=== PATIENT | male | born 1945 | race Asian ===

== ENCOUNTER 2017-01-20 18:53 | Inpatient (IN) | payer MEDICARE, OTHER ==
[~2017-01-20] VITALS: Ht 165.1 cm; Wt 53.2 kg
[2017-01-20] MEDS ORDERED: DSS100 PO (19:17)
[2017-01-20] MEDS ORDERED: MULT-1272 PO (19:17)
[2017-01-20] MEDS ORDERED: COLL30OI TP (19:17)
[2017-01-20] MEDS ORDERED: METO25XL PO (19:17)
[2017-01-20] MEDS ORDERED: MOM30 PO (19:17)
[2017-01-20] MEDS ORDERED: FE PR (19:17)
[2017-01-20] MEDS ORDERED: AMLO-511 PO (19:17)
[2017-01-20] MEDS ORDERED: CLON.2 PO (19:17)
[2017-01-20] MEDS ORDERED: ENOX40DI9 SQ (19:17)
[2017-01-20] MEDS ORDERED: ACET-784 PO (19:17)
[2017-01-20] MEDS ORDERED: LACT1CAP62 PO (19:17)
[2017-01-20] MEDS ORDERED: DIPH50 PO (19:17)
[2017-01-20] MEDS ORDERED: INSNOV SQ (19:17)
[2017-01-20] MEDS ORDERED: THIA100 PO (19:17)
[2017-01-20] MEDS ORDERED: OXYC5 PO (19:17)
[2017-01-20] MEDS ORDERED: FOLI1 PO (19:17)
[2017-01-20] MEDS ORDERED: CLON1PAT13 TD (19:17)
[2017-01-20] MEDS ORDERED: IPRA3AMP4 IH (19:17)
[2017-01-20] MEDS ORDERED: GUAI5SYR PO (19:17)
[2017-01-20] MEDS ORDERED: FAMO20 PO (19:17)
[2017-01-20] MEDS ORDERED: AUD NEB (19:17)
[2017-01-20] MEDS ORDERED: BARIUM SULFATE 0.1% SUSPENSION 450 ML BOTTLE PO ONE (20:00)
[2017-01-20] MEDS ORDERED: SODIUM CHLORIDE 0.9% 100 ML ONE (20:08)
[2017-01-20] MEDS ORDERED: IOVERSOL 350 MG/ML 100 ML VIAL ONE (20:08)
[2017-01-20 20:36] LABS: BASOPHILS % (AUTO) 0.2 % (0.0-2.0); EOSINOPHILS % (AUTO) 1.2 % (1.0-6.0); HEMATOCRIT 38.1 % (41-53); HEMOGLOBIN 12.8 g/dL (13.5-17.5); LYMPHOCYTES # (AUTO) 1.6 K/uL (1.0-4.8); LYMPHOCYTES % (AUTO) 7.4 % (22.0-44.0); MEAN CORPUSCULAR HEMOGLOBIN 28.9 pg (26.0-34.0); MEAN CORPUSCULAR HGB CONC 33.5 G/dL (31.0-37.0); MEAN CORPUSCULAR VOLUME 86 fL (80-100); MONOCYTES # (AUTO) 1.4 K/uL (0.1-1.0); MONOCYTES % (AUTO) 6.4 % (2.0-9.0); NEUTROPHILS # (AUTO) 18.2 K/uL (1.8-7.7); NEUTROPHILS % (AUTO) 84.8 % (40.0-70.0); PLATELET COUNT (AUTO) 320 K/uL (150-450); RED BLOOD CELL COUNT(AUTO) 4.42 MIL/uL (4.50-5.90); RED CELL DISTRIBUTION WIDTH 15.8 % (11.5-14.5); WHITE BLOOD COUNT (AUTO) 21.5 K/uL (4.5-11.0)
[2017-01-20 20:44] LABS: ANION GAP 9 mmol/L (8-16); CALCIUM, TOTAL 9.3 mg/dL (8.8-10.5); CARBON DIOXIDE 29 mmol/L (22-29); CHLORIDE 98 mmol/L (98-107); CREATININE 0.73 mg/dL (0.60-1.30); GLOMERULAR FILTR. RATE CALC > 60 mL/min (>60); POTASSIUM 3.4 mmol/L (3.5-5.1); SODIUM SERUM 136 mmol/L (136-145); UREA NITROGEN, BLOOD 12 mg/dL (7-18)
[2017-01-20 20:50] LABS: ALANINE AMINOTRANSFERASE 36 U/L (12-78); ALBUMIN 3.3 g/dL (3.4-5.0); ASPARTATE AMINOTRANSFERASE 34 U/L (15-37); BILIRUBIN,TOTAL 0.3 mg/dL (0.1-1.0); TOTAL PROTEIN, SERUM 8.7 g/dL (6.4-8.2)
[2017-01-20 21:02] LABS: APPEARANCE,URINE CLEAR (CLEAR); GLUCOSE, URINE (UA) NEGATIVE (NEGATIVE); KETONES,URINE NEGATIVE (NEGATIVE); LEUKOCYTE ESTERASE ,URINE SMALL (NEGATIVE); OCCULT BLOOD,URINE NEGATIVE (NEGATIVE); PROTEIN,URINE NEGATIVE (NEGATIVE)
[2017-01-20 21:13] LABS: RBC,URINE 0-2 /HPF (0-2); SQUAMOUS EPITHELIAL CELL,UR Rare /LPF (None Seen)
[2017-01-20] MEDS ORDERED: MAGNESIUM HYDROXIDE SUSPENSION 30 ML UDCUP PO PRN (22:30)
[2017-01-20] MEDS ORDERED: ALBUTEROL SULFATE 2.5 MG/0.5 ML NEB SOLUTION NEB PRN (22:30)
[2017-01-20] MEDS ORDERED: SODIUM CHLORIDE 0.9% 1,000 ML IV ONE (22:30)
[2017-01-20] MEDS ORDERED: CloNIDine HCL 0.1 MG TABLET PO PRN (22:30)
[2017-01-20] MEDS ORDERED: POTASSIUM CHL 10 MEQ/WATER 50 ML IV PRN (22:30)
[2017-01-20] MEDS ORDERED: POTASSIUM CHLORIDE 20 MEQ ER TABLET PO PRN (22:30)
[2017-01-20] MEDS ORDERED: ACETAMINOPHEN 325 MG TABLET PO PRN (22:30)
[2017-01-20] MEDS ORDERED: DEXTROSE 50%-WATER 25 GM/50 ML SYRINGE IVP PRN (22:30)
[2017-01-20 23:02] LABS: GLUCOSE,POINT OF CARE 97 MG/DL (70-110)
[2017-01-21] VITALS (7 sets, daily range): BP systolic 113–158; BP diastolic 68–88
[2017-01-21] MEDS ORDERED: PNEUMOCOCCAL VACCINE POLYVALENT 0.5 ML VIAL [PPSV23] IM ONE (00:30)
[2017-01-21] MEDS: PIPERACILLIN/TAZO 3.375 GM/D5W 50 ML IV SCH ×5 (00:32→23:30)
[2017-01-21] MEDS: HEPARIN SODIUM,PORCINE 5,000 UNITS/ML VIAL SQ SCH ×4 (08:00→23:30)
[2017-01-21] MEDS: ASPIRIN 81 MG CHEWABLE TABLET PO SCH (08:43)
[2017-01-21] MEDS: DOCUSATE SODIUM 100 MG CAPSULE PO SCH ×2 (08:43→21:04)
[2017-01-21 11:48] LABS: GLUCOSE,POINT OF CARE 105 MG/DL (70-110)
[2017-01-21] MEDS: INSULIN ASPART 100 UNITS/ML SQ PRN ×2 (12:04→17:14)
[2017-01-21] MEDS ORDERED: SODIUM CHLORIDE 0.9% 100 ML ONE (13:18)
[2017-01-21 16:02] LABS: GLUCOSE,POINT OF CARE 100 MG/DL (70-110)
[2017-01-22 04:47] VITALS: BP 132/72
[2017-01-22] MEDS: PIPERACILLIN/TAZO 3.375 GM/D5W 50 ML IV SCH (05:41)
[2017-01-22 06:22] LABS: BASOPHILS # (AUTO) 0.02 K/uL (0.00-0.20); BASOPHILS % (AUTO) 0.1 % (0.0-2.0); EOSINOPHILS # (AUTO) 0.38 K/uL (0.00-0.70); EOSINOPHILS % (AUTO) 2.04 % (1.0-6.0); HEMATOCRIT 37.7 % (41-53); HEMOGLOBIN 12.8 g/dL (13.5-17.5); LYMPHOCYTES # (AUTO) 1.3 K/uL (1.0-4.8); LYMPHOCYTES % (AUTO) 6.8 % (22.0-44.0); MEAN CORPUSCULAR HEMOGLOBIN 28.6 pg (26.0-34.0); MEAN CORPUSCULAR HGB CONC 33.8 G/dL (31.0-37.0); MEAN CORPUSCULAR VOLUME 85 fL (80-100); MONOCYTES # (AUTO) 1.4 K/uL (0.1-1.0); MONOCYTES % (AUTO) 7.5 % (2.0-9.0); NEUTROPHILS # (AUTO) 15.5 K/uL (1.8-7.7); NEUTROPHILS % (AUTO) 83.6 % (40.0-70.0); PLATELET COUNT (AUTO) 311 K/uL (150-450); RED BLOOD CELL COUNT(AUTO) 4.46 MIL/uL (4.50-5.90); RED CELL DISTRIBUTION WIDTH 15.7 % (11.5-14.5); WHITE BLOOD COUNT (AUTO) 18.6 K/uL (4.5-11.0)
[2017-01-22 06:29] LABS: ANION GAP 10 mmol/L (8-16); CALCIUM, TOTAL 8.9 mg/dL (8.8-10.5); CARBON DIOXIDE 27 mmol/L (22-29); CHLORIDE 100 mmol/L (98-107); CREATININE 0.71 mg/dL (0.60-1.30); GLOMERULAR FILTR. RATE CALC > 60 mL/min (>60); POTASSIUM 3.3 mmol/L (3.5-5.1); SODIUM SERUM 137 mmol/L (136-145); UREA NITROGEN, BLOOD 7 mg/dL (7-18)
[2017-01-22 07:36] VITALS: BP 135/53
[2017-01-22] MEDS: HEPARIN SODIUM,PORCINE 5,000 UNITS/ML VIAL SQ SCH ×2 (08:00→15:05)
[2017-01-22] MEDS: ASPIRIN 81 MG CHEWABLE TABLET PO SCH (08:06)
[2017-01-22] MEDS: DOCUSATE SODIUM 100 MG CAPSULE PO SCH ×2 (08:06→21:44)
[2017-01-22] MEDS ORDERED: TIGECYCLINE 50 MG in SODIUM CHLORIDE 0.9% 50 ML IV SCH (10:00)
[2017-01-22] MEDS ORDERED: TIGECYCLINE 100 MG in SODIUM CHLORIDE 0.9% 100 ML IV ONE (10:30)
[2017-01-22 11:36] VITALS: BP 137/81
[2017-01-22 16:55] VITALS: BP 136/81
[2017-01-22] MEDS ORDERED: ONDANSETRON HCL 4 MG/2 ML VIAL ONE (17:13)
[2017-01-22] MEDS ORDERED: ONDANSETRON HCL 4 MG/2 ML VIAL IVP PRN (17:15)
[2017-01-22] MEDS ORDERED: DIPH25 PO (17:15)
[2017-01-22 20:20] VITALS: BP 159/98
[2017-01-22] MEDS: ONDANSETRON HCL 4 MG/2 ML VIAL IVP PRN (21:44)
[2017-01-22] MEDS: TIGECYCLINE 50 MG in SODIUM CHLORIDE 0.9% 50 ML IV SCH (21:46)
[2017-01-22] MEDS: LACTOBACILLUS ACIDOPHILUS/BULGARICUS TABLET PO SCH (22:08)
[2017-01-23 00:32] VITALS: BP 144/91
[2017-01-23] MEDS: ONDANSETRON HCL 4 MG/2 ML VIAL IVP PRN ×2 (03:12→18:14)
[2017-01-23 05:11] VITALS: BP 154/94
[2017-01-23 06:56] LABS: ANION GAP 8 mmol/L (8-16); CALCIUM, TOTAL 9.2 mg/dL (8.8-10.5); CARBON DIOXIDE 27 mmol/L (22-29); CHLORIDE 100 mmol/L (98-107); CREATININE 0.67 mg/dL (0.60-1.30); GLOMERULAR FILTR. RATE CALC > 60 mL/min (>60); SODIUM SERUM 135 mmol/L (136-145); UREA NITROGEN, BLOOD 14 mg/dL (7-18)
[2017-01-23 07:14] VITALS: BP 141/93
[2017-01-23] MEDS: HEPARIN SODIUM,PORCINE 5,000 UNITS/ML VIAL SQ SCH ×3 (08:00→15:47)
[2017-01-23] MEDS: LACTOBACILLUS ACIDOPHILUS/BULGARICUS TABLET PO SCH ×2 (08:12→20:51)
[2017-01-23] MEDS: ASPIRIN 81 MG CHEWABLE TABLET PO SCH (08:13)
[2017-01-23] MEDS: DOCUSATE SODIUM 100 MG CAPSULE PO SCH ×2 (08:13→20:51)
[2017-01-23] MEDS: TIGECYCLINE 50 MG in SODIUM CHLORIDE 0.9% 50 ML IV SCH (10:51)
[2017-01-23] MEDS ORDERED: SODIUM CHLORIDE 0.9% 100 ML ONE (11:01)
[2017-01-23 11:27] VITALS: BP 147/93
[2017-01-23 15:17] VITALS: BP 138/95
[2017-01-23 18:17] LABS: GLUCOSE,POINT OF CARE 83 MG/DL (70-110)
[2017-01-23 18:18] LABS: GLUCOSE,POINT OF CARE 102 MG/DL (70-110)
[2017-01-23 18:18] LABS: GLUCOSE,POINT OF CARE 82 MG/DL (70-110)
[2017-01-23 18:18] LABS: GLUCOSE,POINT OF CARE 108 MG/DL (70-110)
[2017-01-23 19:08] LABS: GLUCOSE,POINT OF CARE 90 MG/DL (70-110)
[2017-01-23 19:08] LABS: GLUCOSE,POINT OF CARE 76 MG/DL (70-110)
[2017-01-23 19:08] LABS: GLUCOSE,POINT OF CARE 85 MG/DL (70-110)
[2017-01-23 19:08] LABS: GLUCOSE,POINT OF CARE 106 MG/DL (70-110)
[2017-01-23 19:08] LABS: GLUCOSE,POINT OF CARE 104 MG/DL (70-110)
[2017-01-23 19:31] VITALS: BP 131/87
[2017-01-24 00:56] VITALS: BP 146/92
[2017-01-24] MEDS: TIGECYCLINE 50 MG in SODIUM CHLORIDE 0.9% 50 ML IV SCH ×2 (01:51→10:11)
[2017-01-24] MEDS: HEPARIN SODIUM,PORCINE 5,000 UNITS/ML VIAL SQ SCH ×3 (01:51→16:00)
[2017-01-24 04:22] VITALS: BP 156/83
[2017-01-24 06:49] LABS: ANION GAP 8 mmol/L (8-16); CALCIUM, TOTAL 9.2 mg/dL (8.8-10.5); CARBON DIOXIDE 29 mmol/L (22-29); CHLORIDE 101 mmol/L (98-107); CREATININE 0.68 mg/dL (0.60-1.30); GLOMERULAR FILTR. RATE CALC > 60 mL/min (>60); POTASSIUM 4.1 mmol/L (3.5-5.1); SODIUM SERUM 138 mmol/L (136-145); UREA NITROGEN, BLOOD 17 mg/dL (7-18)
[2017-01-24 06:50] LABS: BASOPHILS % (AUTO) 0.6 % (0.0-2.0); EOSINOPHILS % (AUTO) 1.7 % (1.0-6.0); HEMATOCRIT 42.2 % (41-53); LYMPHOCYTES # (AUTO) 1.8 K/uL (1.0-4.8); LYMPHOCYTES % (AUTO) 10.4 % (22.0-44.0); MEAN CORPUSCULAR HEMOGLOBIN 28.6 pg (26.0-34.0); MEAN CORPUSCULAR HGB CONC 33.1 G/dL (31.0-37.0); MEAN CORPUSCULAR VOLUME 86 fL (80-100); MONOCYTES % (AUTO) 6.1 % (2.0-9.0); NEUTROPHILS # (AUTO) 13.6 K/uL (1.8-7.7); NEUTROPHILS % (AUTO) 81.2 % (40.0-70.0); PLATELET COUNT (AUTO) 400 K/uL (150-450); RED BLOOD CELL COUNT(AUTO) 4.88 MIL/uL (4.50-5.90); RED CELL DISTRIBUTION WIDTH 15.4 % (11.5-14.5); WHITE BLOOD COUNT (AUTO) 16.8 K/uL (4.5-11.0)
[2017-01-24 07:18] VITALS: BP 124/80
[2017-01-24] MEDS: LACTOBACILLUS ACIDOPHILUS/BULGARICUS TABLET PO SCH (08:20)
[2017-01-24] MEDS: DOCUSATE SODIUM 100 MG CAPSULE PO SCH (08:20)
[2017-01-24] MEDS: ASPIRIN 81 MG CHEWABLE TABLET PO SCH (08:20)
[2017-01-24 11:10] VITALS: BP 148/92
[2017-01-24] MEDS: INSULIN ASPART 100 UNITS/ML SQ PRN (12:13)
[2017-01-24 15:46] VITALS: BP 131/81
[2017-01-24 19:58] LABS: GLUCOSE,POINT OF CARE 88 MG/DL (70-110)
[2017-01-24 20:02] LABS: GLUCOSE,POINT OF CARE 91 MG/DL (70-110)
[2017-01-24 20:08] LABS: GLUCOSE,POINT OF CARE 89 MG/DL (70-110)
== END 2017-01-24 18:00 | DRG 871 ==
LOC: EMS 18:55 → 5N 22:41
PROVIDERS: ADMIT Internal Medicine; ATTEND Internal Medicine
DX: A41.01 Sepsis due to Methicillin susceptible Staphylococcus aureus (principal); K65.1 Peritoneal abscess; E44.0 Moderate protein-calorie malnutrition; K56.7 Ileus, unspecified; N39.0 Urinary tract infection, site not specified; Z68.1 Body mass index [BMI] 19.9 or less, adult; E11.9 Type 2 diabetes mellitus without complications; I10 Essential (primary) hypertension; K21.9 Gastro-esophageal reflux disease without esophagitis; K80.20 Calculus of gallbladder without cholecystitis without obstruction; Z16.24 Resistance to multiple antibiotics; Z79.4 Long term (current) use of insulin; B96.1 Klebsiella pneumoniae [K. pneumoniae] as the cause of diseases classified elsewhere; Z88.5 Allergy status to narcotic agent; Z28.21 Immunization not carried out because of patient refusal
CPT/HCPCS: 74177; 82962; 83605; 84132; 87040; 87070; 87081; 87086; 87205; 96360; 96361; 97110; 97116; 97162; 97530; 99291; J1644; J2405; J2543; J3243; J7030; J7050

== ENCOUNTER → 2017-04-25 | Outpatient (CLI) | payer MEDICARE, OTHER ==
[~2017-04-25] VITALS: Ht 160 cm; Wt 62.0 kg
[~2017-04-25] MED LIST: ACET-784 PO; AMLO-511 PO; AUD NEB; CLON.2 PO; CLON1PAT13 TD; COLL30OI TP; DIPH25 PO; DSS100 PO; ENOX40DI9 SQ; FAMO20 PO; FE PR; FOLI1 PO; GUAI5SYR PO; INSNOV SQ; IPRA3AMP4 IH; LACT1CAP62 PO; LORA10TA7 PO; MENT10LO MM; METO25XL PO; MOM30 PO; MULT-1272 PO; OXYC5 PO; THIA100 PO
[2017-04-25 13:47] VITALS: BP 143/82
== END | disposition home or self-care (01) ==
LOC: SRCNTR 13:39
PROVIDERS: ATTEND Internal Medicine Critical Care Medicine
DX: G47.33 Obstructive sleep apnea (adult) (pediatric) (principal); C61 Malignant neoplasm of prostate; E11.9 Type 2 diabetes mellitus without complications; I10 Essential (primary) hypertension; J44.1 Chronic obstructive pulmonary disease with (acute) exacerbation; J93.83 Other pneumothorax; Z79.4 Long term (current) use of insulin; Z82.3 Family history of stroke; Z87.891 Personal history of nicotine dependence; Z88.5 Allergy status to narcotic agent; Z90.79 Acquired absence of other genital organ(s)
CPT/HCPCS: G0463

== ENCOUNTER → 2017-04-26 | Outpatient (CLI) | payer MEDICARE, OTHER ==
[~2017-04-26] MED LIST changes: -ACET-784 PO; -AUD NEB; -CLON.2 PO; -CLON1PAT13 TD; -COLL30OI TP; -DIPH25 PO; -DSS100 PO; -ENOX40DI9 SQ; -FAMO20 PO; -FE PR; -FOLI1 PO; -GUAI5SYR PO; -INSNOV SQ; -IPRA3AMP4 IH; -LACT1CAP62 PO; -METO25XL PO; -MOM30 PO; -MULT-1272 PO; -OXYC5 PO; -THIA100 PO
== END | disposition home or self-care (01) ==
LOC: RADPV 11:57
PROVIDERS: ATTEND Internal Medicine Critical Care Medicine
DX: M19.032 Primary osteoarthritis, left wrist (principal); G89.4 Chronic pain syndrome

== ENCOUNTER → 2017-05-15 | Outpatient (CLI) | payer MEDICARE, OTHER | END | disposition home or self-care (01) | LOC: MSR 11:28 | PROVIDERS: ATTEND Internal Medicine Critical Care Medicine | DX: I70.0 Atherosclerosis of aorta (principal); K80.20 Calculus of gallbladder without cholecystitis without obstruction; M19.032 Primary osteoarthritis, left wrist; J44.1 Chronic obstructive pulmonary disease with (acute) exacerbation; J84.112 Idiopathic pulmonary fibrosis | CPT/HCPCS: 71250; 94010; 94726; 94727; 94729 ==

== ENCOUNTER → 2017-05-24 | Outpatient (CLI) | payer MEDICARE, OTHER ==
[~2017-05-24] VITALS: Ht 160 cm; Wt 63.0 kg
[2017-05-24 13:22] VITALS: BP 118/79
== END | disposition home or self-care (01) ==
LOC: SRCNTR 13:09
PROVIDERS: ATTEND Internal Medicine Critical Care Medicine
DX: J44.1 Chronic obstructive pulmonary disease with (acute) exacerbation (principal); J93.83 Other pneumothorax; G47.33 Obstructive sleep apnea (adult) (pediatric); J84.9 Interstitial pulmonary disease, unspecified; I10 Essential (primary) hypertension; Z85.46 Personal history of malignant neoplasm of prostate; Z90.79 Acquired absence of other genital organ(s)
CPT/HCPCS: G0463

== ENCOUNTER → 2017-07-02 | Outpatient (CLI) | payer MEDICARE, OTHER ==
[~2017-07-02] VITALS: Ht 160 cm; Wt 63.6 kg
[~2017-07-02] MED LIST changes: -LORA10TA7 PO; +MELA3TAB66 PO; +MELO-107 PO; -MENT10LO MM; +NINT150C PO
[2017-07-02 11:38] VITALS: BP 128/83
== END | disposition home or self-care (01) ==
LOC: SRCNTR 11:28
PROVIDERS: ATTEND Internal Medicine Critical Care Medicine
DX: I10 Essential (primary) hypertension (principal); J44.9 Chronic obstructive pulmonary disease, unspecified; J84.9 Interstitial pulmonary disease, unspecified; J45.901 Unspecified asthma with (acute) exacerbation; J93.83 Other pneumothorax
CPT/HCPCS: G0463

== ENCOUNTER → 2017-07-03 | Outpatient (CLI) | payer MEDICARE, OTHER ==
[2017-07-03 13:32] LABS: ALBUMIN 3.6 g/dL (3.4-5.0); BILIRUBIN,TOTAL 0.7 mg/dL (0.1-1.0); TOTAL PROTEIN, SERUM 7.9 g/dL (6.4-8.2)
[2017-07-03 13:33] LABS: BILIRUBIN,DIRECT 0.1 mg/dL (0.00-0.20)
== END | disposition home or self-care (01) ==
LOC: LABPV 10:32
PROVIDERS: ATTEND Internal Medicine Critical Care Medicine
DX: J84.10 Pulmonary fibrosis, unspecified (principal)